=== PATIENT | female | born 1960 | race Caucasian/White ===

== ENCOUNTER → 2016-12-17 | Outpatient (CLI) | payer OTHER ==
[~2016-12-17] MED LIST: HYDR-757 PO; LEVO750T6 PO; METR500T PO
== END ==
LOC: LABNPT 18:13
PROVIDERS: ATTEND Nurse Practitioner Family
DX: N30.01 Acute cystitis with hematuria (principal)
CPT/HCPCS: 87088

== ENCOUNTER 2017-11-24 13:39 | Outpatient (RCR) | payer OTHER | END 2017-11-26 | disposition home or self-care (01) | PROVIDERS: ATTEND Orthopaedic Surgery | DX: M75.02 Adhesive capsulitis of left shoulder (principal); M54.2 Cervicalgia ==

== ENCOUNTER 2017-12-21 13:28 | Outpatient (RCR) | payer OTHER | END 2018-01-11 09:33 | disposition home or self-care (01) | PROVIDERS: ATTEND Orthopaedic Surgery | DX: M75.02 Adhesive capsulitis of left shoulder (principal); M54.2 Cervicalgia ==